=== PATIENT | male | born 1945 | race Caucasian/White ===

== ENCOUNTER → 2020-05-09 08:36 | Outpatient (CLI) | payer OTHER, SELFPAY ==
[2020-05-09 11:32] LABS: COVID19 -Nasal RAPID Negative (Negative)
== END ==
PROVIDERS: Visit Provider Nurse Practitioner
DX: Z11.59 Encounter for screening for other viral diseases (principal)
CPT/HCPCS: 87635

== ENCOUNTER → 2020-05-11 08:28 | Outpatient (CLI) | payer OTHER, SELFPAY ==
--- NOTE | 2020-05-11 18:09 | DI.NM.S_ITS ---
DATE OF SERVICE: 05/11/2020 PROCEDURE PERFORMED: Exercise treadmill stress and rest myocardial perfusion imaging study with gating ejection fraction and regional wall motion. ORDERING PROVIDER: Dr. Felix Alanis. INDICATIONS: The patient is a 74-year-old male with a history of CABG and a borderline abnormal stress test in the past. EXERCISE TREADMILL TESTING: The patient was able to exercise for 9 minutes 18 seconds on a standard Tre protocol, suggesting excellent exercise capacity with an CARMENCITA of -37%, achieving 10.1 METs. He had a normal heart rate and blood pressure response to exercise, achieving a maximum heart rate of 149 BPM (101% of his predicted maximum). He had no chest discomfort or other anginal symptom. His resting ECG appears normal and there are no significant ST- segment shifts with exercise. He had occasional PACs and rare PVCs with exercise, but no complex ectopy. At 6 minutes 15 seconds of exercise, at a heart rate of 125 BPM, he was injected with 25.3 millicuries of technetium-99m Myoview and was imaged 20 minutes later using a gated SPECT acquisition protocol. Earlier in the day while at rest, he had been injected with 13.2 millicuries of technetium-99m Myoview and was imaged 30 minutes later, again using a gated SPECT acquisition protocol. FINDINGS: 1. Raw data: There is good myocardial tracer uptake. Lung/heart ratio was normal at 0.28 with a normal TID ratio of 0.76. 2. Quantitated gated SPECT: Post-stress ejection fraction is estimated at 81% without any focal wall motion abnormality. The resting ejection fraction is estimated at 72% with a normal resting end-diastolic volume of 116 mL. 3. Myocardial perfusion imaging: Post-stress supine images shows a normal myocardial perfusion pattern without any concerning perfusion defects, supported by normal perfusion imaging in the prone position. The resting images show an identical perfusion pattern without any concerning areas of improvement. IMPRESSION: 1. Normal myocardial perfusion study. 2. No evidence of myocardial ischemia or previous myocardial infarction. 3. Normal left ventricular systolic function without any focal wall motion abnormality. 4. Excellent exercise capacity without angina or ECG evidence of ischemia. Vidal De Jesus - Jo/edvin doc#: [id number]/job#: [id number] dd: 05/11/2020 16:24:00 dt: 05/11/2020 17:27:00 DICTATING MD/COPIES TO: Fredy Handy MD; Felix Alanis MD COPIES MNE: [id number];
== END ==
PROVIDERS: Referring Provider Internal Medicine Cardiovascular Disease; Visit Provider Internal Medicine Cardiovascular Disease
DX: R94.39 Abnormal result of other cardiovascular function study (principal); I25.810 Atherosclerosis of coronary artery bypass graft(s) without angina pectoris; Z95.1 Presence of aortocoronary bypass graft
CPT/HCPCS: 78452; 93017; A9502